=== PATIENT | female | born 1980 | race Hispanic/Latino ===

== ENCOUNTER 2025-05-23 21:23 | Emergency (ER) | payer BC ==
[~2025-05-23] VITALS: Ht 165.1 cm; Wt 81.6 kg
[2025-05-23 21:45] VITALS: TEMP 98.1
[2025-05-23 22:16] LABS: BASOPHILS % 0.2 % (0.0-1.0); EOSINOPHILS % 1.7 % (0.0-6.0); LYMPHOCYTES % 45.7 % (18.0-39.1); MONOCYTES % 4.6 % (4.4-11.3); NEUTROPHILS % 47.5 % (38.7-80.0); RED CELL DISTRIBUTION WIDTH 12.5 % (11.7-14.4)
[2025-05-23 22:34] LABS: EST GLOMERULAR FILTRATION RATE 95.0 ML/MIN (>=60)
[2025-05-23] MEDS: DIPHENHYDRAMINE HCL INJ 50 MG/ML VIAL IV STA (22:40)
[2025-05-23] MEDS: METOCLOPRAMIDE HCL 10 MG/2ML VIAL IV STA (22:40)
[2025-05-23] MEDS: METHYLPREDNISOLONE SOD SUCC 125 MG/2ML VIAL IV STA (22:40)
[2025-05-23] MEDS: SODIUM CHLORIDE 0.9% 1000ML 1,000 ML IV STA (22:40)
[2025-05-23] MEDS: KETOROLAC TROMETHAMINE 30 MG/ML VIAL IV STA (22:40)
[2025-05-23 23:00] VITALS: PULSE 74; RESP 18
[2025-05-24 00:20] VITALS: BP 123/73; PULSE 74; RESP 18; O2SAT 97
== END 2025-05-24 00:03 | disposition home or self-care (01) ==
LOC: ER 21:25
DX: R51.9 Headache, unspecified (principal); R11.0 Nausea
CPT/HCPCS: 36415; 70450; 80053; 81025; 85025; 99284; J1200; J1885; J2765; J7030